=== PATIENT | male | born 1980 | race Caucasian/White ===

== ENCOUNTER 2018-12-09 11:11 | Emergency (ER) | payer SELFPAY ==
[~2018-12-09] VITALS: Ht 172.7 cm; Wt 114.2 kg
[2018-12-09 11:18] VITALS: BP 122/76; TEMP 98.3
[2018-12-09 14:33] VITALS: PULSE 71
== END 2018-12-09 14:34 | disposition home or self-care (01) ==
LOC: COL.ER 11:11 → EDBD 11:12 → COL.ER 14:34
DX: H61.23 Impacted cerumen, bilateral (principal)

== ENCOUNTER 2019-02-09 22:59 | Emergency (ER) | payer OTHER ==
[~2019-02-09] VITALS: Ht 177 cm; Wt 96.4 kg
[2019-02-09 23:33] LABS: BASO # 0.1 (0.0-0.2); BASO % 0.4 % (0.0-2.0); EOS # 0.2 (0.0-0.7); EOS % 1.7 % (0-4.0); GRAN # 7.6 (1.4-6.5); GRAN % 65.8 % (42.2-75.2); HEMATOCRIT 39.9 % (42.0-52.0); HEMOGLOBIN 13.6 g/dl (13.5-18.0); MEAN CELL VOLUME 84 fl (80.0-100.0); MEAN CORPUSCULAR HEMOGLOBIN 29 pg (27.0-31.0); MEAN CORPUSCULAR HGB CONC 34 g/dl (33.0-37.0); MEAN PLATELET VOLUME 9.9 fl (7.4-10.4); MONO # 0.6 (0.1-0.6); MONO % 5.4 % (1.7-9.3); PLATELET COUNT 288 K/mm3 (130-400); RED BLOOD COUNT 4.78 M/mm3 (4.20-5.60); REDCELL DISTRIBUTION WIDTH-CV 12.5 % (11.5-14.5)
[2019-02-09 23:46] LABS: ALBUMIN 4.6 gm/dL (3.5-5.0); BILIRUBIN,TOTAL 0.3 mg/dL (0.0-1.0); C-REACTIVE PROTEIN 2.6 mg/dL (0.0-0.9); CALCIUM 9.2 mg/dL (8.4-10.2); CREATININE, serum 1.03 (0.66-1.25); POTASSIUM 3.4 mmol/L (3.4-5.0); TOTAL PROTEIN 8.5 gm/dL (6.4-8.2)
[2019-02-10 00:36] LABS: COLLECTION METHOD CLEAN CATCH
[2019-02-10 00:43] LABS: MUCOUS Present /lpf; PH 5 (5-8); SQUAMOUS EPITHELIAL None Seen /hpf; URINE APPEARANCE Clear; URINE BACTERIA None Seen /hpf; URINE BILIRUBIN Negative (NEGATIVE); URINE BLOOD 3+ (NEGATIVE); URINE COLOR Yellow; URINE GLUCOSE Negative (NEGATIVE); URINE KETONE Negative (NEGATIVE); URINE LEUKOCYTE ESTERASE Negative (NEGATIVE); URINE NITRATE Negative (NEGATIVE); URINE PROTEIN(semi-quant) Negative (NEGATIVE); URINE UROBILINOGEN Negative (NEGATIVE)
[2019-02-10] MEDS ORDERED: ZOFRAN ODT4 MG PO (01:06)
[2019-02-10] MEDS ORDERED: NORCO 325 MG-51 TAB PO (01:06)
[2019-02-10 01:30] VITALS: BP 131/85; PULSE 100; TEMP 97.7
== END 2019-02-10 01:30 | disposition home or self-care (01) ==
LOC: COL.ER 22:59
PROVIDERS: Physician Assistant
DX: N20.0 Calculus of kidney (principal)
CPT/HCPCS: J1885; J2405; J7030; Q9967